=== PATIENT | female | born 2000 | race Hispanic/Latino ===

== ENCOUNTER 2019-08-06 12:28 | Emergency (ER) | payer SELFPAY ==
[2019-08-06 13:52] LABS: Bacteria/HPF None Seen HPF (None Seen); Bilirubin Negative (Negative); Blood, Urine 1+ (Negative); Clarity Clear (Clear); Glucose, Urine (Dipstick) Normal (Negative); Leukocyte Negative Leu/uL (Negative); Mucous/LPF 1+ LPF (<2+); Nitrite Negative (Negative); Protein, Urine (Dipstick) Negative (Neg-Trace); Squamous Epithelial 0-3 HPF (0-3); Urobilinogen Normal mg/dL (Less than 2); WBC/HPF 0-3 HPF (0-3)
[2019-08-06] MEDS ORDERED: Lidocaine 1% (PF) 30 ML VIAL ONE (15:09)
[2019-08-06] MEDS ORDERED: cefTRIAXone\\ROCEPHIN 250 MG VIAL ONE (15:09)
[2019-08-06] MEDS ORDERED: Azithromycin 250 MG TAB ONE (15:09)
[2019-08-07 21:58] LABS: Chlamydia by PCR Not Detected (NotDetected); GC by PCR Not Detected (NotDetected)
== END 2019-08-06 16:16 | disposition home or self-care (01) ==
LOC: ERS 12:28
DX: N72 Inflammatory disease of cervix uteri (principal); N76.0 Acute vaginitis
CPT/HCPCS: 81003; 81015; 87480; 87491; 87510; 87591; 87660; 96372; 99283; J0696; J2001

== ENCOUNTER 2019-08-12 18:43 | Emergency (ER) | payer SELFPAY ==
[2019-08-12] MEDS ORDERED: Famotidine 20 MG TAB ONE (20:26)
[2019-08-12] MEDS ORDERED: diphenhydrAMINE 25 MG CAP ONE (20:26)
== END 2019-08-12 20:38 | disposition home or self-care (01) ==
LOC: ERS 18:43
DX: L50.0 Allergic urticaria (principal)
CPT/HCPCS: 99283; Q0163